=== PATIENT | female | born 1955 | race Caucasian/White ===

== ENCOUNTER 2019-05-09 22:01 | Inpatient (IN) | payer OTHER ==
[~2019-05-09] VITALS: Ht 157.5 cm; Wt 90.9 kg
[~2019-05-09 22:01] MED LIST: LASIX20 MG PO; LISINOPRIL10 MG PO; LOW DOSE ASPIRI81 M1 PO; PLAVIX75 MG PO; ZOCOR20 MG PO
[2019-05-09] MEDS ORDERED: LEXAPRO5 MG PO (22:23)
--- NOTE | 2019-05-09 22:37 | NUR ---
PT ASSIST TO BEDSIDE COMMODE.
--- NOTE | 2019-05-09 22:39 | NUR ---
NON SLIP SOCKS GIVEN TO PT. PT REFUSING TO WEAR THEM
[2019-05-09 23:40] LABS: BASOPHILS 0.3 % (0-2); EOSINOPHILS 0.3 % (0-7); HEMATOCRIT 44.8 % (36.0-48.0); HEMOGLOBIN 15.4 g/dL (12-16); IMMATURE GRANULOCYTES 0.3 % (0-5); LYMPHOCYTES 21.3 % (15-50); MCH 31.6 pg (26.0-34.0); MCHC 34.4 g/dL (31.0-37.0); MEAN PLATELET VOLUME 10.2 fL (7.4-10.4); MONOCYTES 4.9 % (2-11); NEUTROPHILS 72.9 % (40-80); PLATELET COUNT 218 10x3/uL (130-400); RBC 4.87 10x6/uL (4.00-5.40); RDW 13.1 % (11.5-14.5); WBC 7.6 10x3/uL (4.8-10.8)
[2019-05-09 23:53] LABS: CALC OSMOLALITY 280 mosm/kg (275-300); CALCIUM 8.8 mg/dL (8.5-10.1); CARBON DIOXIDE 24.9 mmol/L (21.0-32.0); CHLORIDE - SERUM 103 mmol/L (98-107); CREATININE - SERUM 0.6 mg/dL (0.6-1.3); GLUCOSE 110 mg/dL (74-106); INR 1.01 (0.85-1.17); POTASSIUM - SERUM 3.6 mmol/L (3.5-5.1); PROTIME 12.8 SECONDS (11.6-15.0); SODIUM 141 mmol/L (136-145); UREA NITROGEN 10 mg/dL (7-18); eGFR NON AFRICAN AMERICAN > 90 mL/min (90-120)
[2019-05-09 23:59] LABS: ALBUMIN 3.9 g/dL (3.4-5.0); ALKALINE PHOSPHATASE 113 U/L (46-116); ALT (SGPT) 26 U/L (10-68); BILIRUBIN - TOTAL 0.69 mg/dL (0.2-1.3); PROTEIN - SERUM 8.2 g/dL (6.4-8.2)
[2019-05-10] VITALS (7 sets, daily range): BP systolic 145–168; BP diastolic 69–82; Ht 157.5 cm; Wt 90.9 kg
--- NOTE | 2019-05-10 01:00 | NUR ---
ARRIVED TO ROOM 2222 VIA HOSPITAL STAFF. TRANSFER TIMES 3 ASSIST TO BED. PAIN NOTED TO RLE RELATED TO FX. STABILIZED AFTER TRANSFER. MORPHINE GIVEN PER ORDERS. ALERT AND ORIENTED TIMES 3. ABLE TO VOICE ALL NEEDS. SKIN IS CDI. ICE PACK APPLIED TO RLE. WILL NOTE ANY CHANGE.
[2019-05-10 05:06] LABS: BASOPHILS 0.1 % (0-2); EOSINOPHILS 0.1 % (0-7); HEMOGLOBIN 14.2 g/dL (12-16); IMMATURE GRANULOCYTES 0.3 % (0-5); LYMPHOCYTES 23.6 % (15-50); MCH 31.3 pg (26.0-34.0); MCHC 33.8 g/dL (31.0-37.0); MCV 92.5 fL (80.0-100.0); MEAN PLATELET VOLUME 10.8 fL (7.4-10.4); MONOCYTES 6.5 % (2-11); NEUTROPHILS 69.4 % (40-80); PLATELET COUNT 191 10x3/uL (130-400); RBC 4.54 10x6/uL (4.00-5.40); RDW 13.3 % (11.5-14.5); WBC 7.5 10x3/uL (4.8-10.8)
[2019-05-10 05:22] LABS: CALC OSMOLALITY 283 mosm/kg (275-300); CALCIUM 8.5 mg/dL (8.5-10.1); CARBON DIOXIDE 24.4 mmol/L (21.0-32.0); CHLORIDE - SERUM 105 mmol/L (98-107); CREATININE - SERUM 0.5 mg/dL (0.6-1.3); GLUCOSE 98 mg/dL (74-106); PHOSPHOROUS 4.6 mg/dL (2.5-4.9); POTASSIUM - SERUM 3.9 mmol/L (3.5-5.1); SODIUM 143 mmol/L (136-145); UREA NITROGEN 9 mg/dL (7-18); eGFR NON AFRICAN AMERICAN > 90 mL/min (90-120)
--- NOTE | 2019-05-10 06:42 | NUR ---
AT 0615, PAIN IS NOT CONTROLLED WITH MORPHINE, CALLED WITH ORDERS FOR DILAUDID 0.5MG Q4HPRN, MEDICATION GIVEN, AT THIS TIME PT PAIN IS AT A 3, ABLE TO PARTICIPATE IN HIBI BATH AND WITH USING BEDPAN WITH MINIMAL ASSIST AND DIFFICULTY. REQUESTED PILLOW FOR ELEVATION, GRANTED, RUNNING FULL LENGTH OF LOWER LEG WITH ICE PACK APPLIED. PT IS UP IN BED AT THIS TIME WITH NO FURTHER REQUESTS. WILL CONTINUE TO OBSERVE.
--- NOTE | 2019-05-10 07:23 | NUR ---
ASSUME PT CARE, PT SITTING IN BED WITH HOB AT 30DEGREES, STATES NO PAIN AT THIS TIME, PT WAS GIVEN PRN PAIN MEDICATION, PT TO HAVE SURGERY THIS MORNING, CONCENTS ON CHART AND BATH GIVEN BEFORE CHANGE OF SHIFT. NO NEEDS VOICED NO S/SX OF DISTRESS, CONTINUE WITH PLAN OF CARE
--- NOTE | 2019-05-10 09:28 | NUR ---
PT LYING IN BED WITH SPOUSE AT BEDSIDE, PT STATES PAIN IS AT A 5 NOW PT STILL HAS AN HOUR BEFORE I CAN ADMINISTER ANOTHER DOSE. GAVE PT AN ICE PACK WELL ELEVATED HER LEG SOME MORE. ADMINISTERED SCHEDULED BP MEDS WELL LEXAPRO WITH SIP OF WATER. NO OTHER NEEDS VOICED CONTINUE WITH PLAN OF CARE
--- NOTE | 2019-05-10 10:36 | NUR ---
I have reviewed this patient and I concur with the Shift Assessment completed by the Licensed Practical Nurse today this shift.
--- NOTE | 2019-05-10 14:15 | NUR ---
PT AND SPOUSE INQUIRING ON WHEN SURGERY WILL BE, ADVISED THAT THERE ARE OTHER SURGERIES AT THE TIME AND CAN GO OVER ALOTTED TIME DUE TO UNFORSSEN CIRCUMSTANCES. NO OTHER NEEDS VOICED WILL CONTINUE WITH PAIN CONTROL AND PLAN OF CARE
--- NOTE | 2019-05-10 15:06 | NUR ---
PT ON LIGHT STATED PAIN IS BACK AND HURTS REAL BAD, PT STILL HAS 30MINUTES BEFORE I CAN GIVE, ASKED HER TO GIVE ME 20 MINUTES AND THEN I CAN ADMINISTER. CONTINUE WITH PLAN OF CARE
--- NOTE | 2019-05-10 19:10 | NUR ---
PATIENT ALERT AND ORIENTED. BEDSIDE REPORT RECEIVED IN FRONT OF PATIENT. PATIENT STATES NO PAIN AT THIS TIME. PATIENT HAS IMMOBILIZER ON THE RIGHT LEG. REPORTS "IM STILL NUMB" PATIENT CAN NOT WIGGLE TOES DUE TO PRIOR ILLNESS THAT IS NORMAL FOR PATIENT. NO BLEEDING NOTICED THROUGH ELYSE BANDAGE. SLIGHT SWELLING NOTED. RIGHT FOOT IS WARM TO TOUCH. CAPILLARY REFILL IS LESS THAN THREE SECONDS. UNABLE TO LOCATE PEDAL PULSE AT THIS TIME BUT LOWER EXTREMETY PERFUSION IS NOTED THROUGH WARMTH AND CAPILARY REFILL. PATIENT DENIES FURTHER NEEDS AT THIS TIME. CALL LIGHT IN REACH. CPOC.
--- NOTE | 2019-05-10 20:05 | NUR ---
ADJUSTED PATIENT IN BED AND PROVIDED EXTRA PILLOWS. PATIENT REPORTS "NO PAIN" AT THIS TIME. ASSISTED WITH REARRANGING ROOM FOR EASIER ACCESS TO BELONGINGS. PATIENT DENIES FURTHER NEEDS AT THIS TIME. CPOC.
--- NOTE | 2019-05-10 22:55 | NUR ---
MEPILEX BORDER APPLIED TO BILATERAL HEELS PER POST OP ORDERS. SCD APPLIED TO THE LEFT LEG AND PLEXI PULSE TO THE RIGHT LEG DUE TO IMMOBILIZER. INCENTIVE SPIROMETER PROVIDED AND AT BEDSIDE. PATIENT DENIES PAIN. ASSISTED WITH FRACTURE PEREZ. PATIENT VOIDED WITH NO ISSUES. CALL LIGHT IN REACH. CPOC.
--- NOTE | 2019-05-11 01:52 | NUR ---
PATIENT WAKES WHEN ENTERING THE ROOM. DENIES NEEDS AT THIS TIME. CPOC.
--- NOTE | 2019-05-11 02:44 | NUR ---
I have reviewed this patient and I concur with the Shift Assessment completed by the Licensed Practical Nurse today this shift.
[2019-05-11 04:00] VITALS: BP 124/55
[2019-05-11 06:15] LABS: BASOPHILS 0 % (0-2); EOSINOPHILS 0 % (0-7); HEMATOCRIT 36.6 % (36.0-48.0); IMMATURE GRANULOCYTES 0.1 % (0-5); LYMPHOCYTES 9.1 % (15-50); MCHC 32.8 g/dL (31.0-37.0); MEAN PLATELET VOLUME 11.2 fL (7.4-10.4); MONOCYTES 5.2 % (2-11); NEUTROPHILS 85.6 % (40-80); PLATELET COUNT 176 10x3/uL (130-400); RBC 3.87 10x6/uL (4.00-5.40); RDW 13.7 % (11.5-14.5); WBC 7.8 10x3/uL (4.8-10.8)
[2019-05-11 06:32] LABS: MCV 94.6 fL (80.0-100.0)
[2019-05-11 06:40] LABS: CALC OSMOLALITY 279 mosm/kg (275-300); CALCIUM 7.9 mg/dL (8.5-10.1); CARBON DIOXIDE 23.3 mmol/L (21.0-32.0); CHLORIDE - SERUM 106 mmol/L (98-107); CREATININE - SERUM 0.6 mg/dL (0.6-1.3); GLUCOSE 120 mg/dL (74-106); POTASSIUM - SERUM 3.9 mmol/L (3.5-5.1); SODIUM 140 mmol/L (136-145); UREA NITROGEN 13 mg/dL (7-18); eGFR NON AFRICAN AMERICAN > 90 mL/min (90-120)
--- NOTE | 2019-05-11 07:42 | NUR ---
ALERT AND ORIENTED. LUNGS CLEAR BILATERALLY. HEART SOUNDS S1 AND S2 HEARD IN ALL LOUISE. BOWEL SOUNDS ACTIVE X 4. SKIN INTACT WITHOUT REDNESS. IMMOBILIZER IN PLACE TO RIGHT LEG. ELYSE WRAP IN PLACE TO RIGHT LEG C/D/I. IV TO LEFT HAND PATENT WITHOUT REDNESS. DENIES NEEDS. BED LOW. CALL ARENAS AND PERSONAL ITEMS IN REACH. WILL CONTINUE TO MONITOR.
--- NOTE | 2019-05-11 09:41 | HP ---
PATIENT: ABDOULAYE HAMMER MEDICAL RECORD: [id number] ACCOUNT: [id number] LOCATION:D.MS [address] : 53 ADMISSION DATE: 05/09/19 PCP: TONYA WILLARD MD HISTORY AND PHYSICAL EXAMINATION REASON FOR ADMISSION: Fall with right knee pain. HISTORY OF PRESENT ILLNESS: The patient is a 63-year-old female post-polio syndrome who sees Dr. Willard for primary care at [facility]. She states she was in her power wheelchair last night and hit a door frame, was thrown out under her right knee and developed pain medially in her right proximal knee. She is essentially nonambulatory, but can transfer prior to the injury. She was brought in and evaluated by Dr. Henriquez in ED with x-ray showing a proximal tib-fib fracture. The patient has a history of 4 coronary stents and one left superficial femoral stent, but she is currently off of Plavix, only takes baby aspirin. Sees Dr. Wright on a yearly basis and has been angina free. She is now admitted for medical preoperative evaluation prior to surgical repair by Dr. Meléndez. PAST MEDICAL HISTORY: Post-polio syndrome at age 1, had scoliosis in lumbar area, essential hypertension, hyperlipidemia, coronary artery disease, peripheral vascular disease, osteoarthritis, psoriasis, history of depression, vitamin D deficiency, bilateral ankle pain, history of rhythm remote herpes zoster. PAST SURGICAL HISTORY: Has had coronary stents times 4, last approximately 6 years ago. Denies history of IN, history of left superficial femoral artery stent, had lumbar fusion for scoliosis. Has had a right rotator cuff repair and a left reverse shoulder repair with Dr. Hernandez. Has had bilateral ankle fusions, right carotid stent, section. SOCIAL HISTORY: Smoked over [id number] history, has not smoked in 9 years. FAMILY HISTORY: Mother , had heart disease. Father , had heart attack. Brother had stroke and cancer. HOME MEDICATIONS: Lexapro 5 mg a day, Zocor 20 mg at bedtime, lisinopril 10 mg a day, Lasix 20 mg every morning, aspirin 81 mg daily, coenzyme Q10 200 mg daily, vitamin D3 50,000 unit capsule twice weekly. REVIEW OF SYSTEMS: GENERAL: No fever or fatigue. HEENT: No recent visual change, sinus congestion, or sore throat. RESPIRATORY: No severe cough. CARDIAC: No exertional chest pain, claudication, palpitations or history of IN. GASTROINTESTINAL: No nausea, vomiting, change in stools or blood per rectum. GYNECOLOGICAL: No vaginal bleeding. She is postmenopausal post-tubal ligation, 1. GENITOURINARY: No incontinence. MUSCULOSKELETAL: Has morning stiffness in both ankles and lumbar spine. She has acute pain in her right proximal tib-fib area and post-fall. NEUROLOGIC: Denies headaches, has chronic motor deficits in her right lower extremity greater than her left. She is able to take a few steps with bilateral knee braces. History of seizures. PSYCHIATRIC: Has history of anxiety and depression, clinically stable. HISTORY AND PHYSICAL [id number] ABDOULAYE HAMMER PHYSICAL EXAMINATION: VITAL SIGNS: Temperature 97.9 Fahrenheit orally, pulse 84 and regular, respirations are 16, blood pressure 144/70 with a sat of 97% on room air. GENERAL: Pleasant 63-year-old female in no acute distress with moderate pain control. HEENT: Normocephalic. Eyes are clear. NECK: No bruits or masses. CHEST: Clear without wheeze or rales. HEART: Regular rate without MGR. PMI appropriate. BREASTS: Not examined. ABDOMEN: Morbidly obese, nontender. GYNECOLOGIC: Deferred. EXTREMITIES: She has hematoma anteriorly in the proximal tib-fib area with minimal movement of her left knee due to pain. She has muscle atrophy in the right leg greater than left [id number]. She has slight dorsiflexion of both ankles with fusion noted. NEUROLOGIC: Oriented to person, place, and time. Cranial nerves are grossly intact. Gait not tested. LABORATORY DATA: White count is 7500 with a H&H of 14 and 42 respectively. BMP is normal. INR is 1.01. EKG shows sinus rhythm with borderline LVH. Right knee film shows proximal tib-fib fracture. Chest x-ray is pending. ASSESSMENT: 1. Fall with right proximal tibia-fibula fracture. 2. Postpolio syndrome minimally ambulatory. 3. History of coronary artery disease, clinically stable. 4. History of essential hypertension, history of hyperlipidemia, history of peripheral vascular disease of left lower extremity, history of carotid stent, vitamin D deficiency, osteoarthritis. PLAN: The patient appears medically stable for intended surgery per Dr. Meléndez will follow with you medically. TRANSINT:[id number] Voice Confirmation ID: [id number] DOCUMENT ID: [id number] JULIET RYAN MD at 0941 CC: [id number] DICTATION DATE: 05/10/19 07 MAIL FORWARDING SYSTEM MARKUP CLERK: 05/10/19 1121 ADM IN [address] [place] [address]
--- NOTE | 2019-05-11 13:27 | NUR ---
PATIENT REQUESTED BSC. BSC PLACED IN ROOM. STATES WILL CALL WHEN NEEDS TO USE.
--- NOTE | 2019-05-11 17:10 | NUR ---
RESTING IN BED. DENIES NEEDS. WILL CONTINUE TO MONITOR.
--- NOTE | 2019-05-11 19:00 | NUR ---
PATIENT SITTING IN BED WITH EYES OPEN. NO S/S OF DISTRESS. NO C/O AT THIS TIME. PATIENT HAS IV IN L HAND 1/2 NORMAL SALINE @ 50 ML/HR. PATIENT IS POST OP DAY 2 ON R LEG TIB/FIB FX. PATIENT HAS A ELYSE WRAP AND IMMOBILIZER ON R LEG. PATIENT EXPRESSED WANT TO USE THE BEDSIDE COMMODE. BEDSIDE COMMODE IS IN PLACE. PATIENT HAS A PLEXI ON RIGHT FOOT AND SCD ON LEFT FOOT. CALL LIGHT IN PLACE WILL CONTINUE TO MONITOR.
[2019-05-11 20:51] VITALS: BP 131/53
[2019-05-12 00:21] VITALS: BP 128/54
--- NOTE | 2019-05-12 03:09 | NUR ---
I have reviewed this patient and I concur with the Shift Assessment completed by the Licensed Practical Nurse today this shift.
[2019-05-12 05:08] VITALS: BP 147/92
[2019-05-12 06:21] LABS: HEMATOCRIT 34.2 % (36.0-48.0); HEMOGLOBIN 11.1 g/dL (12-16)
--- NOTE | 2019-05-12 07:00 | NUR ---
PT AWAKE AND ORIENTED, LYING IN BED WITH NURSES IN ROOM TRYING TO RESTART AN I/V. NO COMPLAINTS/CONCERNS, ALL QUESTIONS ANSWERED TO THE BEST OF MY ABILITY. NO FAMILY AT BEDSIDE, CL IN REACH, SRX1.
[2019-05-12 07:56] LABS: CALC OSMOLALITY 282 mosm/kg (275-300); CALCIUM 7.8 mg/dL (8.5-10.1); CARBON DIOXIDE 26.7 mmol/L (21.0-32.0); CHLORIDE - SERUM 107 mmol/L (98-107); CREATININE - SERUM 0.5 mg/dL (0.6-1.3); GLUCOSE 108 mg/dL (74-106); POTASSIUM - SERUM 3.6 mmol/L (3.5-5.1); SODIUM 140 mmol/L (136-145); eGFR NON AFRICAN AMERICAN > 90 mL/min (90-120)
[2019-05-12 07:58] LABS: UREA NITROGEN 22 mg/dL (7-18)
--- NOTE | 2019-05-12 08:01 | OP ---
PATIENT NAME: ABDOULAYE KUMARI MEDICAL RECORD: [id number] :51 LOCATION:D.MS [facility] ADMISSION DATE:05/09/19 SURGEON: ARCHANA GUEVARA DO DATE OF OPERATION: 05/10/2019 PROCEDURE PERFORMED: Right proximal tibia shaft open reduction and internal fixation. PREOPERATIVE DIAGNOSIS: Displaced oblique right proximal tibial shaft. POSTOPERATIVE DIAGNOSIS: Displaced oblique right proximal tibial shaft. INDICATIONS: Ms. Kumari is a 63-year-old female who fell out of her chair and sustained a right tibial shaft fracture, it was oblique in nature in the proximal third. She does suffer from polio and does not have motor function below the knee, but she does, however, stand up from time to time and says she can walk about 50 feet on her legs with the braces on. Due to that fact, I told her that we should probably fix this and that it would take some time to heal to get her tibia lined up and she was aware of the risks including infection, bleeding, damage to nerves and vessels, need for further surgery, further fracture and continued pain, nonunion, malunion, and even and she signed the consent. SURGEON: Archana Guevara DO DESCRIPTION OF PROCEDURE: The patient was taken to the operative suite, laid in the supine position. She was given a block by anesthesia in the preoperative area, given 2 grams Ancef preoperatively. She was then sedated and LMA was placed. The right lower extremity was then prepped and draped in sterile fashion. Timeout was performed. Everybody was in agreement as to the correct side, site, patient, and procedure. The right lower extremity was then exsanguinated with an Esmarch, tourniquet was inflated to 350 mmHg and up for 49 minutes. Incision was then began on the lateral aspect of the leg and careful dissection was made down to the tibial shaft. Reduction was made and the plate was put on. We used a 7-hole proximal locking plate from [employer] with 3.5 locking screws, 11 of them. The plate once it was positioned well was pinned into place and then screws were placed in the shaft and then proximally and then back into the shaft we finished putting screws in it. Once satisfactory alignment and screws were in the bone and they were in good position on the AP and lateral, the tourniquet was deflated and the bleeding was coagulated. The fascia was then closed over the plate with #1 Vicryl in a [id number]-[id number]-qrzxf fashion and the skin was closed with 2-0 Vicryl in inverted interrupted fashion and then a ZipLine was placed on the knee around the incision. She was dressed with Adaptic, 4 x 4s, ABD, Webril and Elio wrap and placed in a knee immobilizer. She was awakened and taken to the recovery in stable condition. BLOOD LOSS: Approximately 50 mL. COMPLICATIONS: None. TRANSINT:[id number] Voice Confirmation ID: [id number] DOCUMENT ID: [id number] OPERATIVE REPORT [id number] ABDOULAYE KUMARI MICHAEL D, DO at 0801 CC: [id number] DICTATION DATE: 05/10/19 1734 PROFESSOR OF COMMUNICATION: 05/10/[address] [facility] [address] [place] [address]
[2019-05-12 08:23] VITALS: BP 136/54
[2019-05-12] MEDS ORDERED: OXYCODONE HCL5 M1 PO (08:27)
[2019-05-12 08:42] LABS: BASOPHILS 0.1 % (0-2); EOSINOPHILS 0.2 % (0-7); HEMATOCRIT 34.2 % (36.0-48.0); HEMOGLOBIN 11.1 g/dL (12-16); IMMATURE GRANULOCYTES 0.1 % (0-5); LYMPHOCYTES 23.6 % (15-50); MCH 31.1 pg (26.0-34.0); MCHC 32.5 g/dL (31.0-37.0); MCV 95.8 fL (80.0-100.0); MEAN PLATELET VOLUME 11.3 fL (7.4-10.4); MONOCYTES 12.4 % (2-11); NEUTROPHILS 63.6 % (40-80); PLATELET COUNT 164 10x3/uL (130-400); RBC 3.57 10x6/uL (4.00-5.40); RDW 13.9 % (11.5-14.5); WBC 8.3 10x3/uL (4.8-10.8)
--- NOTE | 2019-05-12 09:57 | NUR ---
PT AWAKE AND ORIENTED, PREFORMING SELF BED BATH. C/O PAIN, MEDICATION ADMINISTERED. AT BEDSIDE. QUESTIONS ANSWERED, CL IN REACH SRX2
--- NOTE | 2019-05-12 10:41 | NUR ---
I have reviewed this patient and I concur with the Shift Assessment completed by the Licensed Practical Nurse today this shift.
[2019-05-12 12:29] VITALS: BP 126/55
--- NOTE | 2019-05-12 13:51 | NUR ---
ALERT AND ORIENTED, WORKING WITH PT ON A WAY TO USE THE BED SIDE COMMODE BY SITTING PERPANDICULAR TO THE BED AND SCOOTING ON TO A BEDSIDE COMMODE WHICH IS SET AT THE SAME HEIGHT. PT IS UNABLE TO DO SO BUT CLAIMS IT WILL BE EASILY ENOUGH ONCE SHE IS HOME. CHANGED LINNENS, PT IS CLEAN AND DRY. CL IN REACH, SRX2.
--- NOTE | 2019-05-12 15:47 | MORECARE ---
CASE MANAGEMENT DISCHARGE SUMMARY PATIENT: ABDOULAYE HAMMER UNIT: [id number] ADM DATE: 05/09/19 AGE: 63 : 51 SEX: F ROOM/BED: D.2222 AUTHOR: DIMITRI MCKINLEY PHYSICIAN: REFERRING PHYSICIAN: JULIET RYAN MD DATE OF SERVICE: 05/12/19 Discharge Plan Patient Name: ABDOULAYE HAMMER Facility: [facility]:[place] : 1955 Planned Disposition: Home Anticipated Discharge Date: 05/13/19 Discharge Date: Expected LOS: 4 Initial Reviewer: [email or web address] Initial Review Date: 05/12/2019 Generated: 05/12/19 4:46 pm Patient Name: ABDOULAYE HAMMER Page [id number] at 1547 All edits/amendments must be made on the electronic document DICTATION DATE: 05/12/19 1546 LEASE EXAMINER: TABBY 05/12/19 1546 RPT#: [id number] DC DATE: STATUS: ADM IN [facility] [address] [place] [address] END OF REPORT
--- NOTE | 2019-05-12 15:55 | MORECARE ---
CASE MANAGEMENT DISCHARGE SUMMARY PATIENT: ABDOULAYE KUMARI UNIT: [id number] ADM DATE: 05/09/19 AGE: 63 : 51 SEX: F ROOM/BED: D.2222 AUTHOR: DIMITRI MCKINLEY PHYSICIAN: REFERRING PHYSICIAN: JULIET RYAN MD DATE OF SERVICE: 05/12/19 Discharge Plan Patient Name: ABDOULAYE KUMARI Facility: [facility]:[place] : 1955 Planned Disposition: Home Anticipated Discharge Date: 05/13/19 Discharge Date: Expected LOS: 4 Initial Reviewer: [email or web address] Initial Review Date: 05/12/2019 Generated: 05/12/19 4:54 pm DCPIA - Discharge Planning Initial Assessment Updated by [email or web address]: Donya Gage on 05/12/19 3:49 pm * Is the patient Alert and Oriented? Yes * How many steps to enter\exit or inside your home? Ramp/0 * PCP Dr. Stephan Mcdermott * Pharmacy [facility] in [place] * Preadmission Environment Home with Family * ADLs Partial Dependent * Partial ADLs (Assistance needed) Ambulation * Equipment Bedside Commode Other Power Chair or Electric Scooter * Other Equipment Forearm crutches Transfer boards leg braces * List name and contact numbers for known caregivers / representatives who currently or will assist patient after discharge: Eliot Kumari - spouse - [phone] * Verbal permission to speak to the caregivers and representatives has been obtained from the patient. Yes * Community resources currently utilized None * Additional services required to return to the preadmission environment? No * Can the patient safely return to the preadmission environment? Yes * Has this patient been hospitalized within the prior 30 days at any hospital? No Last DP export: 05/12/19 2:47 pm Patient Name: ABDOULAYE KUMARI Page [id number] at 1555 All edits/amendments must be made on the electronic document DICTATION DATE: 05/12/19 1554 SENIOR CLINICAL PROJECT MANAGER: TABBY 05/12/19 155 RPT#: [id number] DC DATE: STATUS: ADM IN [address] [place] [address] END OF REPORT
--- NOTE | 2019-05-12 16:02 | MORECARE ---
CASE MANAGEMENT DISCHARGE SUMMARY PATIENT: ABDOULAYE KUMARI UNIT: [id number] ADM DATE: 05/09/19 AGE: 63 : 53 SEX: F ROOM/BED: D.2222 AUTHOR: DIMITRI MCKINLEY PHYSICIAN: REFERRING PHYSICIAN: JULIET RYAN MD DATE OF SERVICE: 05/12/19 Discharge Plan Patient Name: ABDOULAYE KUMARI Facility: [facility]:[place] : 1955 Planned Disposition: Home Anticipated Discharge Date: 05/13/19 Discharge Date: Expected LOS: 4 Initial Reviewer: [email or web address] Initial Review Date: 05/12/2019 Generated: 05/12/19 5:02 pm Comments DCP- Discharge Planning Updated by [email or web address]: Donya Gage on 05/12/19 2:[address] Patient Name: ABDOULAYE KUMARI Admission Status: ER Accout number: [id number] Admission Date: 05-09-2019 : 1955 Admission Diagnosis: Attending: JULIET RYAN Current LOS: 3 Anticipated DC Date: 05-13-2019 Planned Disposition: Home Primary Insurance: [employer] Discharge Planning Comments: CM met with patient to complete initial dc planning assessment. CM educated patient on the CM role and verbal consent given by patient to complete assessment. Patient lives at home with her . At discharge patient plans to return and feels this is a safe discharge. CM discussed availability of home health, rehab services, and medical equipment. Patient denied known discharge needs at this time. States she would consent to home health if needed for dressing changes, otherwise she does not need home health. States "I'm used to transferring myself from my power chair to the bath and car." States "I will mainly stay in my power chair." CM will continue to follow and will assist as needed with dc plans/needs. Grade Checker: Donya Gage DCPIA - Discharge Planning Initial Assessment Updated by [email or web address]: Donya Gage on 05/12/19 3:49 pm * Is the patient Alert and Oriented? Yes * How many steps to enter\\exit or inside your home? Ramp/0 * PCP Dr. Stephan Mcdermott * Pharmacy [facility] in [place] * Preadmission Environment Home with Family * ADLs Partial Dependent * Partial ADLs (Assistance needed) Ambulation * Equipment Bedside Commode Other Power Chair or Electric Scooter * Other Equipment Forearm crutches Transfer boards leg braces * List name and contact numbers for known caregivers / representatives who currently or will assist patient after discharge: Eliot Kumari - [facility] - [phone] * Verbal permission to speak to the caregivers and representatives has been obtained from the patient. Yes * Community resources currently utilized None * Additional services required to return to the preadmission environment? No * Can the patient safely return to the preadmission environment? Yes * Has this patient been hospitalized within the prior 30 days at any hospital? No Last DP export: 05/12/19 2:55 pm Patient Name: ABDOULAYE KUMARI Page [id number] at 1602 All edits/amendments must be made on the electronic document DICTATION DATE: 05/12/191601 PRINCIPAL CLERK: TABBY 05/12/19 160 RPT#: [id number] DC DATE: STATUS: ADM IN [facility] [address] [place] [address] END OF REPORT
[2019-05-12 17:08] VITALS: BP 141/61
--- NOTE | 2019-05-12 19:20 | NUR ---
IN BED WITH FACIAL GRIMACING NOTED. PAIN 02/13. WILL TREAT ACCORDINGLY.
--- NOTE | 2019-05-12 20:30 | NUR ---
PAIN MED AND INFLAMMATORY MEDICATION GIVEN EARLIER, AT THIS TIME IT IS DEEMED EFFECTIVE FOR PAIN 09/13. COMPLAINTS OF PAIN IN RIGHT FOOT MADE WORSE BY PLEXI BOOT. REQUESTS FOR ME TO LET DR. GUEVARA KNOW SHE HAS BRUISING AND SWELLING TO RIGHT FOOT THAT SHE DID NOT NOTICE UNTIL THE PLEXI BOOT WAS APPLIED.
--- NOTE | 2019-05-12 21:30 | NUR ---
PAIN IS STILL UNDER CONTROL. DR. GUEVARA WAS NOTIFIED OF REQUEST EARLIER WITH ORDERS PLACED FOR XRAY TO RIGHT FOOT. WILL NOTE CHANGE.
[2019-05-12 21:35] VITALS: BP 121/78
--- NOTE | 2019-05-13 00:15 | NUR ---
PAIN IS STILL BEING MANAGED FROM EARLIER MEDICATION ADMINISTRATION.
[2019-05-13 00:54] VITALS: BP 134/86
--- NOTE | 2019-05-13 04:14 | NUR ---
HURTING PAIN LEVEL 6/10 OXY AND VISTARIL GIVEN PER ORDERS.
[2019-05-13 05:16] VITALS: BP 145/69
[2019-05-13 06:43] LABS: HEMATOCRIT 34.9 % (36.0-48.0); HEMOGLOBIN 11.2 g/dL (12-16)
--- NOTE | 2019-05-13 07:43 | NUR ---
ALERT AND ORIENTED. LUNGS CLEAR BILATERALLY. HEART SOUNDS S1 AND S2 HEARD IN ALL LOUISE. BOWEL SOUNDS ACTIVE X 4. ELYSE WRAP AND IMMOBILIZER IN PLACE TO RIGHT LEG. BRUISING NOTED TO RIGHT FOOT. STATES THINKS FOOT IS BROKEN. XRAY DONE LAST NIGHT. WAITING DR GUEVARA TO GO OVER RESULTS. SKIN OTHERWISE INTACT WITHOUT REDNESS. IV TO LEFT WRIST PATENT WITHOUT REDNESS. DENIES NEEDS. BED LOW. CALL ARENAS AND PERSONAL ITEMS IN REACH. WILL CONTINUE TO MONITOR.
[2019-05-13 07:54] VITALS: BP 119/58
--- NOTE | 2019-05-13 11:23 | NUR ---
DRSG CHANGED TO RIGHT LEG PER ORDER. INCISION SITE WITHOUT S/SX INFECTION.
--- NOTE | 2019-05-13 12:35 | NUR ---
RESTING IN BED. AT BEDSIDE. WILL CONTINUE TO MONITOR.
--- NOTE | 2019-05-13 17:30 | NUR ---
DISCHARGE EDUCATION PROVIDED BOTH WRITTEN AND VERBAL. VERBALIZED UNDERSTANDING. DENIES FURTHER QUESTIONS. DRSGS X3 SENT WITH PATIENT. EDUCATION PROVIDED TO CHANGE IN 1 WEEK. WALKER BOOT PROVIDED FOR PATIENT FOR DC. DENIES FURTHER NEEDS. IV REMOVED FROM LFA WITH TIP INTACT. PATIENT DISCHARGED HOME WITH WITH ALL BELONGINGS.
--- NOTE | 2019-05-14 18:16 | MORECARE ---
CASE MANAGEMENT DISCHARGE SUMMARY PATIENT: ABDOULAYE KUMARI UNIT: [id number] ADM DATE: 05/09/19 AGE: 63 : 51 SEX: F ROOM/BED: D.2222 AUTHOR: DIMITRI MCKINLEY PHYSICIAN: REFERRING PHYSICIAN: JULIET RYAN MD DATE OF SERVICE: 05/14/19 Discharge Plan Patient Name: ABDOULAYE KUMARI Facility: [facility]:[place] : 1955 Planned Disposition: Home Anticipated Discharge Date: 05/13/19 Discharge Date: 05/13/2019 Expected LOS: 4 Initial Reviewer: [email or web address] Initial Review Date: 05/12/2019 Generated: 05/14/19 7:16 pm Comments DCP- Discharge Planning Updated by [email or web address]: Donya Gage on 05/12/19 2:[address] Patient Name: ABDOULAYE KUMARI Admission Status: ER Accout number: [id number] Admission Date: 05-09-2019 : 1955 Admission Diagnosis: Attending: JULIET RYAN Current LOS: 3 Anticipated DC Date: 05-13-2019 Planned Disposition: Home Primary Insurance: [employer] Discharge Planning Comments: CM met with patient to complete initial dc planning assessment. CM educated patient on the CM role and verbal consent given by patient to complete assessment. Patient lives at home with her . At discharge patient plans to return and feels this is a safe discharge. CM discussed availability of home health, rehab services, and medical equipment. Patient denied known discharge needs at this time. States she would consent to home health if needed for dressing changes, otherwise she does not need home health. States "I'm used to transferring myself from my power chair to the bath and car." States "I will mainly stay in my power chair." CM will continue to follow and will assist as needed with dc plans/needs. Tester Rocket Engine: Donya Gage DCPIA - Discharge Planning Initial Assessment Updated by [email or web address]: Donya Gage on 05/12/19 3:49 pm * Is the patient Alert and Oriented? Yes * How many steps to enter\\exit or inside your home? Ramp/0 * PCP Dr. Stephan Mcdermott * Pharmacy [facility] in [place] * Preadmission Environment Home with Family * ADLs Partial Dependent * Partial ADLs (Assistance needed) Ambulation * Equipment Bedside Commode Other Power Chair or Electric Scooter * Other Equipment Forearm crutches Transfer boards leg braces * List name and contact numbers for known caregivers / representatives who currently or will assist patient after discharge: Eliot Kumari - spouse - [phone] * Verbal permission to speak to the caregivers and representatives has been obtained from the patient. Yes * Community resources currently utilized None * Additional services required to return to the preadmission environment? No * Can the patient safely return to the preadmission environment? Yes * Has this patient been hospitalized within the prior 30 days at any hospital? No Last DP export: 05/12/19 3:02 pm Patient Name: ABDOULAYE KUMARI Page [id number] at 1816 All edits/amendments must be made on the electronic document DICTATION DATE: 05/14/191815 SUBSTATION SUPERINTENDENT: TABBY 05/14/191815 RPT#: [id number] DC DATE:05/13/19 STATUS: DIS IN [facility] [address] [place] [address] END OF REPORT
== END 2019-05-13 17:32 | disposition home or self-care (01) | DRG 493 ==
LOC: D.ER 22:01 → D.MS 23:50
PROVIDERS: Family Medicine; Orthopaedic Surgery; ADMIT Family Medicine; ATTEND Family Medicine
PROC: 0QSG04Z Reposition Right Tibia with Internal Fixation Device, Open Approach (ICD-10-PCS; principal; 2019-05-10 16:42)
DX: S82.251A Displaced comminuted fracture of shaft of right tibia, initial encounter for closed fracture (principal); G82.22 Paraplegia, incomplete; G14 Postpolio syndrome; I25.10 Atherosclerotic heart disease of native coronary artery without angina pectoris; I10 Essential (primary) hypertension; E78.5 Hyperlipidemia, unspecified; W05.0XXA Fall from non-moving wheelchair, initial encounter; S92.311A Displaced fracture of first metatarsal bone, right foot, initial encounter for closed fracture; K59.00 Constipation, unspecified

== ENCOUNTER 2020-08-18 06:45 | Day surgery (SDC) | payer OTHER ==
[2020-08-13 12:30] LABS: BASOPHILS 0.5 % (0-2); EOSINOPHILS 2.4 % (0-7); HEMATOCRIT 42.7 % (36.0-48.0); HEMOGLOBIN 13.9 g/dL (12-16); IMMATURE GRANULOCYTES 0.2 % (0-5); LYMPHOCYTE ABS# 1.38 10x3/uL (1.18-3.74); MCHC 32.6 g/dL (31.0-37.0); MEAN PLATELET VOLUME 10.4 fL (7.4-10.4); MONOCYTES 8.9 % (2-11); NEUTROPHIL ABS# 3.47 10x3/uL (1.56-6.13); RBC 4.64 10x6/uL (4.00-5.40); RDW 14.1 % (11.5-14.5); WBC 5.5 10x3/uL (4.8-10.8)
[2020-08-13 12:34] LABS: PLATELET COUNT 221 10x3/uL (130-400)
[2020-08-13 12:57] LABS: CALC OSMOLALITY 279 mosm/kg (275-300); CALCIUM 9.1 mg/dL (8.5-10.1); CARBON DIOXIDE 28.9 mmol/L (21.0-32.0); CHLORIDE - SERUM 103 mmol/L (98-107); CREATININE - SERUM 0.7 mg/dL (0.6-1.3); GLUCOSE 92 mg/dL (74-106); POTASSIUM - SERUM 3.8 mmol/L (3.5-5.1); SODIUM 140 mmol/L (136-145); UREA NITROGEN 15 mg/dL (7-18); eGFR NON AFRICAN AMERICAN 89 mL/min (90-120)
[~2020-08-18] VITALS: Ht 157.5 cm; Wt 90.7 kg
--- NOTE | ~2020-08-18 | OP ---
PATIENT NAME: ABDOULAYE KUMARI MEDICAL RECORD: [id number] :[birth year] LOCATION:[facility] ADMISSION DATE: SURGEON: BILL GUEVARA DO DATE OF OPERATION: 08/18/2020 PROCEDURE PERFORMED: Removal of hardware in right proximal tibia. PREOPERATIVE DIAGNOSIS: Painful hardware, right tibia. POSTOPERATIVE DIAGNOSIS: Painful hardware, right tibia. INDICATIONS: Ms. Kumari is a 64-year-old female who underwent open reduction and internal fixation of the right proximal tibia over a year ago. The hardware was painful to her and she wanted it taken out surgically. I informed her of the risks of this including refracture, bleeding, damage to the peroneal nerve other vessels also in the area, continued pain, need for further surgery and she signed a consent. SURGEON: Bill Guevara DO DESCRIPTION OF PROCEDURE: The patient received a block by anesthesia in the preoperative area and taken to the operative suite, laid in supine position, given general anesthetic and 2 grams of Ancef. LMA was placed. She was not given a block. The right lower extremity was then prepped and draped in sterile fashion. A timeout was performed. Everyone was in agreeance with the correct side, site, patient and procedure. I then began by using Esmarch to exsanguinate the right lower extremity and the tourniquet was inflated to 350 mmHg, it was up for 13 minutes. I then made an incision over the prior incision. Made careful dissection down to the plate, cleaned it off and removed the screws and removed the plate. Tourniquet was then let down. Any bleeding was coagulated with the pickup and Bovie. Racheal Aguilar, certified corporate travel executive then closed the skin with 2-0 Vicryl in inverted interrupted fashion and then put a ZipLine on the incision, then dressed with a soft dressing. She was then awakened and taken to recovery in stable condition. BLOOD LOSS: Minimal. COMPLICATIONS: None. TRANSINT:[id number] Voice Confirmation ID: [id number] DOCUMENT ID: [id number] BILL GUEVARA DO CC: [id number] DICTATION DATE: 08/18/20 0952 PLASTER WHITTLER: 08/18/20 1308 REG [facility] [address] [place] [address]
[~2020-08-18 06:45] MED LIST changes: +KENALOG 0.1 % O15 GM TOPICAL; +LEXAPRO5 MG PO; +OXYCODONE HCL5 M1 PO; +VITAMIN D325 MC1 PO
[2020-08-18 07:41] VITALS: BP 188/80; Ht 157.5 cm; Wt 90.7 kg
[2020-08-18] MEDS ORDERED: HYDROCODON-ACE1 EA10 PO (08:20)
--- NOTE | 2020-08-18 09:50 | NUR ---
ANESTHIESIA NOTIFIED ME THAT PT BP WAS 188/80 BEFORE SURGERY AND THAT NOW IN PACU BP IS 175/81 WHICH IS AT BASELINE.
--- NOTE | 2020-08-18 09:54 | NUR ---
PAOLA REQUESTS THE REMOVED HARDWARE NOT BE SENT TO PATHOLOGY
--- NOTE | 2020-08-18 11:11 | NUR ---
DISCHARGE INSTRUCTIONS REVIEWED WITH PT AND SPOUSE, COPY PROVIDED ALONG WITH ORIGINAL RX. BOTH VOICED UNDERSTANDING.
--- NOTE | 2020-08-18 12:15 | NUR ---
DISCHARGED VIA OWN PERSONAL W/C/SCOOTER, ACCOMPANIED BY AVE DECKER, TO [facility] WITH SPOUSE DRIVING.
== END 2020-08-18 12:15 | disposition home or self-care (01) ==
LOC: D.OPS 06:45
PROVIDERS: Anesthesiology; ATTEND Orthopaedic Surgery
DX: S82.201D Unspecified fracture of shaft of right tibia, subsequent encounter for closed fracture with routine healing (principal); T84.84XA Pain due to internal orthopedic prosthetic devices, implants and grafts, initial encounter